=== PATIENT | male | born 1990 | race Caucasian/White ===

== ENCOUNTER → 2020-11-10 | Outpatient (CLI) | payer BC, SELFPAY | END | disposition home or self-care (01) | LOC: LABSPEC 11-11 08:11 | PROVIDERS: Visit Provider Family Medicine | DX: Z20.822 Contact with and (suspected) exposure to COVID-19 (principal) | CPT/HCPCS: 87635; U0005; U0003 ==

== ENCOUNTER → 2023-10-27 | Outpatient (CLI) | payer BC, SELFPAY ==
--- NOTE | 2023-10-27 17:29 | STRESSREP ---
Stress Test Report Exercise stress test. 33-year-old man with elevated blood pressure Stress protocol: Resting EKG demonstrates normal sinus rhythm with a rate of 86 bpm resting blood pressure is 138/90 mmHg. The patient exercised according to the regular [facility] protocol for a total duration of 9 minutes and 48 seconds attaining a maximum heart rate of 196 bpm which was 104% of maximum predicted heart rate; the maximum workload was 12.6 metabolic equivalents. At rest there were no ST or T wave changes noted to suggest ischemia and at peak exercise upsloping ST changes only were noted which did not meet the criteria for ischemia. No clinical angina was noted the test was terminated due to the target heart rate being achieved/fatigue. The peak blood pressure was 154/88 mmHg. Rate-pressure product was 28,300. This was a good blood pressure response to exercise Conclusion: Stress test with no EKG criteria for ischemia at a high workload Good blood pressure response to exercise
== END | disposition home or self-care (01) ==
PROVIDERS: PCP Family Medicine; Referring Provider Nurse Practitioner Family; Visit Provider Nurse Practitioner Family
DX: R03.0 Elevated blood-pressure reading, without diagnosis of hypertension (principal)
CPT/HCPCS: 93017

== ENCOUNTER 2024-01-08 14:42 | Outpatient (CLI) | payer BC, SELFPAY ==
--- NOTE | 2024-01-08 14:46 | ECHOD_ITS ---
Reason For Study: HTN Procedure This was a 2D Doppler, Color Flow transthoracic echocardiogram. Exam performed in department. Left Ventricle Normal LV size. Left ventricular systolic function is normal. The left ventricular ejection fraction is 65 %. No regional wall motion abnormalities noted. Right Ventricle Normal RV size. Normal systolic function. Atria Normal left atrium. Normal right atrium. Mitral Valve Normal mitral valve. Tricuspid Valve Normal tricuspid valve. Aortic Valve Normal aortic valve. Pulmonic Valve Normal pulmonic valve. Great Vessels Normal aortic root. The pulmonary artery is normal size. Normal inferior vena cava. Pericardium/Pleural No pericardial effusion. MMode/2D Measurements & Calculations LVIDd: 4.7 cm IVSd: 1.0 cm Ao root diam: 3.2 cm LVIDs: 3.0 cm LVPWd: 0.95 cm RVDd: 4.3 cm FS: 36.6 % LAV(MOD-bp): 64.5 ml LVAd ap4: 38.0 cm2 SV(MOD-sp4): 72.8 ml LAV(MOD-bp) Indexed: 27.5 ml/m2 LVLd ap4: 8.9 cm SI(MOD-sp4): 31.0 ml/m2 LAV(MOD-sp2): 59.3 ml EDV(MOD-sp4): 128.6 ml LAV(MOD-sp4): 57.7 ml EDV(sp4-el): 138.4 ml LVAs ap4: 22.1 cm2 LVLs ap4: 7.1 cm ESV(MOD-sp4): 55.8 ml ESV(sp4-el): 58.1 ml EF(MOD-sp4): 56.6 % EF(sp4-el): 58.0 % SV(sp4-el): 80.3 ml LA A4 area: 22.2 cm2 LA dimension(2D): 3.9 cm RA A4 area: 18.0 cm2 TAPSE: 2.0 cm Time Measurements MV dec time: 0.14 sec Doppler Measurements & Calculations MV E max kashif: 94.8 cm/sec Lat Peak E' Kashif: 22.0 cm/sec Med Peak E' Kashif: 11.2 cm/sec MV A max kashif: 60.0 cm/sec E/E' lat: 4.3 E/E' med: 8.5 MV E/A: 1.6 MV V2 max: 101.0 cm/sec MV P1/2t max kashif: 101.0 cm/sec Ao V2 max: 136.3 cm/sec MV max P.1 mmHg MV P1/2t: 38.0 msec Ao max P.4 mmHg MV V2 mean: 44.1 cm/sec Ao V2 mean: 94.7 cm/sec MV mean P.99 mmHg MV dec slope: 779.0 cm/sec2 Ao mean P.1 mmHg MV V2 VTI: 19.9 cm MVA(P1/2t): 5.8 cm2 Ao V2 VTI: 26.8 cm AV (velocity ratio): 0.74 LV V1 max: 96.8 cm/sec PA V2 max: 144.5 cm/sec TR max kashif: 253.9 cm/sec LV V1 max P.8 mmHg TR max P.8 mmHg LV V1 mean P.1 mmHg LV V1 mean: 68.4 cm/sec LV V1 VTI: 19.8 cm ECHO/Echo Complete Interpretation Summary Normal LV size. Left ventricular systolic function is normal. The left ventricular ejection fraction is 65 %. Structurally normal valves. Ordering Physician: Mindi Rivera Referring Physician: Mindi Rivera Performed By: Vick Atkinson RCS
== END 2024-01-08 23:59 | disposition home or self-care (01) ==
LOC: CVS 14:42
PROVIDERS: PCP Family Medicine; Referring Provider Nurse Practitioner Family; Visit Provider Nurse Practitioner Family
DX: I10 Essential (primary) hypertension (principal)
CPT/HCPCS: 93306

== ENCOUNTER → 2024-03-04 | Outpatient (CLI) | payer BC, SELFPAY ==
[2024-03-04 18:54] LABS: ALB/GLOB Ratio 0.9 RATIO (0.9-2.4); AST(SGOT) 26 U/L (15-37); Alanine Aminotransfer ALT/SGPT 43 U/L (16-61); Albumin, Serum 4.3 g/dL (3.2-5.0); Alkaline Phosphatase 69 U/L (45-117); Anion Gap 9 (5-15); BUN 11 mg/dL (7-18); BUN/Creat Ratio 10.9 RATIO (10-20); Calcium,Total 9.8 mg/dL (8.5-10.1); Chloride 99 mmol/L (98-107); Cholesterol 195 mg/dL (200); Creatinine, Serum 1.01 mg/dL (0.70-1.30); EST Glomerular Filtration Rate 91 mL/min (>60); Est Glom Filt Rate - Afr Amer 110 mL/min (>60); Globulin 4.6 g/dL (2.2-4.2); Glucose 74 mg/dL (74-106); High Density Lipoprotein 48 mg/dL; Potassium 3.8 mmol/L (3.5-5.1); Protein, Total 8.9 g/dL (6.4-8.2); Sodium Level 131 mmol/L (136-145); Triglycerides 64 mg/dL; Very Low Density Lipoprotein 13 mg/dL (5-40)
[2024-03-04 22:53] LABS: Thyroid Stim Hormone (TSH) 0.803 uIU/mL (0.358-3.740)
== END | disposition home or self-care (01) ==
LOC: MFPLAB 16:31
PROVIDERS: PCP Family Medicine; Referring Provider Family Medicine; Visit Provider Family Medicine
DX: I10 Essential (primary) hypertension (principal); R00.0 Tachycardia, unspecified

== ENCOUNTER → 2024-04-01 | Outpatient (CLI) | payer BC, SELFPAY ==
[2024-04-01 20:00] LABS: Anion Gap 8 (5-15); BUN 8 mg/dL (7-18); BUN/Creat Ratio 9.1 RATIO (10-20); Calcium,Total 9.8 mg/dL (8.5-10.1); Chloride 103 mmol/L (98-107); Creatinine, Serum 0.88 mg/dL (0.70-1.30); EST Glomerular Filtration Rate 106 mL/min (>60); Est Glom Filt Rate - Afr Amer 128 mL/min (>60); Glucose 75 mg/dL (74-106); Potassium 4.4 mmol/L (3.5-5.1); Sodium Level 136 mmol/L (136-145); Thyroid Stim Hormone (TSH) 0.761 uIU/mL (0.358-3.740)
[2024-04-01 21:45] LABS: Osmolality, Serum 286 mOsm/KG (275-295)
== END | disposition home or self-care (01) ==
LOC: MFPLAB 14:59
PROVIDERS: PCP Family Medicine; Referring Provider Family Medicine; Visit Provider Family Medicine
DX: E87.1 Hypo-osmolality and hyponatremia (principal)
CPT/HCPCS: 36415; 80048; 83930; 84443